=== PATIENT | female | born 1965 | race African-American/Black ===

== ENCOUNTER 2021-12-04 10:28 | Emergency (ER) | payer OTHER, SELFPAY ==
--- NOTE | ~2021-12-04 | CT_ITS ---
EXAMINATION: CT brain wo con DATE: 12/04/2021 11:00 INDICATION: Headache, dizziness, nausea. Hypertension. TECHNIQUE: Computed tomography (CT) of the head was performed without intravenous contrast. The mA wa s adjusted according to patient size. Iterative reconstruction technique was employed. Exam dose: 68 1.00 mGy-cm total exam DLP. COMPARISON: None FINDINGS: No intracranial mass lesion or hemorrhage or cerebrovascular accident is detected. No midli ne shift or mass effect. Normal ventricular size. Bilateral carotid siphon internal carotid artery calcifications. There is nonspecific diminished atte nuation of the cerebral white matter, likely due to chronic small vessel ischemic changes. No subdural or epidural hematoma is detected. No skull fracture or bone destruction. Included paranasal sinuses and the mastoid air cells are normally developed and aerated. IMPRESSION: Cerebral atherosclerosis and chronic small vessel ischemic changes of the cerebral white matter No acute intracranial finding Reviewed, dictated and finalized at [facility]. Reviewed, dictated and finalized at [facility].
[2021-12-04 10:35] VITALS: BP 169/105; PULSE 79; RESP 12; O2SAT 98
--- NOTE | 2021-12-04 10:46 | ECG_ITS ---
Measurements Intervals [place] Rate: 78 P: 36 [place]: 159 QRS: 23 QRSD: 96 T: 7 QT: 354 QTc: 403 Interpretive Statements SINUS RHYTHM CONSIDER INFERIOR INFARCT, AGE INDETERMINATE ABNORMAL ECG Electronically Signed On 12-04-2021 10:48:33 CDT by Prem Carreno D.O.
--- NOTE | 2021-12-04 10:48 | ED.HA ---
HPI - Headache General Chief Complaint: Recheck/Abnormal Lab/Rx Stated Complaint: high blood pressure with headache x days Time Seen by Provider: 12/04/21 10:34 History of Present Illness HPI Narrative: Pt presents with elevated BP and HATHAWAY. 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 Nurse checked BP and it was 210/120 so she sent her to ER. Pt says her BP has been running high and it doesn't seem like her metoprolol is working. Pt takes 50 mg and today took 100mg. Related Data Home Medications Medication Instructions Recorded Confirmed Elestrin 12/04/21 12/04/21 linoleic acid, conjugated 12/04/21 12/04/21 metoprolol tartrate 50 mg tablet 50 mg 1XD 12/04/21 12/04/21 Allergies Allergy/AdvReac Type Severity Reaction Status Date / Time Sulfa (Sulfonamide Allergy Difficulty Verified 12/04/21 10:40 Antibiotics) Breathing Review of Systems Review of Systems: All systems reviewed & are unremarkable except as noted in HPI and below Exam Const: General: healthy appearing Nutritional Appearance: well nourished Orientation/consciousness: patient oriented x3 Limitations: no limitations HENMT: Head: normal to inspection Eyes: Conjunctivae: conjunctivae normal Pupils: Equal, round and reactive pupils present EOM: EOMs intact bilaterally Neck: Neck: normal visual inspection, no lymphadenopathy and no meningeal signs Chest: Chest palpation & inspection: normal inspection of the chest Resp: Effort & Inspection: normal respiratory effort Auscultation: clear to auscultation bilaterally Cardio: Rate: regular rate GI: GI Palp: Yes Soft to palpation Auscultation: normal bowel sounds Skin: General skin exam: normal color Rashes: no rashes Neuro: General: patient oriented x3, moves all extremities and no meningeal signs Cranial nerves: Yes Nystagmus not present Speech: normal speech Extrem: General: normal to inspection and no clubbing, cyanosis or edema Psych: Mental Status: mental status grossly normal Affect: normal affect Attitude: cooperative Course Vital Signs Vital signs: Vital Signs Pulse Rate 79 12/04/21 10:35 Respiratory Rate 12 12/04/21 10:35 Blood Pressure 169/105 H 12/04/21 10:35 Pulse Oximetry 98 12/04/21 10:35 Oxygen Delivery Room Air 12/04/21 10:35 Pulse Rate 69 12/04/21 11:50 Respiratory Rate 16 12/04/21 11:50 Blood Pressure 144/86 H 12/04/21 11:50 Pulse Oximetry 100 12/04/21 11:50 Oxygen Delivery Room Air 12/04/21 10:35 MDM - Headache Lab Data Result diagrams: 12/04/21 10:50 12/04/21 10:50 Labs: Lab Results 12/04/21 12/04/21 Range/Units 10:50 10:50 WBC 6.4 (4.5-10.0) K/mm3 RBC 4.74 (4.2-5.4) M/mm3 Hgb 13.2 (12.0-15.0) g/dL Hct 41.9 (37.0-47.0) % MCV 88.4 (80-100) fl MCH 27.8 (26-34) pg MCHC 31.5 L (32-36) g/dl RDW 12.9 (11.5-14.5) % Plt Count 224 (150-375) k/mm3 MPV 11.6 H (7.4-10.4) fl Immature Gran % (Auto) 0.3 (0-0.5) % Neut % (Auto) 61.6 (45.5-73.1) % Lymph % (Auto) 26.8 (18.3-44.2) % [place] % (Auto) 9.4 H (2.6-8.5) % Eos % (Auto) 1.1 (0-4.4) % Baso % (Auto) 0.8 (0.2-1.2) % Lymph # (Auto) 1.70 (0.9-3.2) K/mm3 [place] # (Auto) 0.6 (0.1-0.6) K/mm3 Eos # (Auto) 0.1 (0-0.3) K/mm3 Baso # (Auto) 0.1 (0.0-0.1) K/mm3 Abs Immat Gran (auto) 0.02 (0.00-0.031) K/mm3 Absolute Neuts (auto) 3.9 (1.3-6.7) K/mm3 Absolute Nucleated RBC 0.0 (0.0-0.012) K/mm3 Nucleated RBC % 0.0 (0.0-0.2) % Sodium 141 (137-145) mmol/L Potassium 4.2 (3.4-5.0) mmol/L Chloride 104 (98-107) mmol/L Carbon Dioxide 29 (22-30) mmol/L Anion Gap 8 (8-16) mmol/L BUN 10 (7-17) mg/dL Creatinine 0.70 (0.7-1.0) mg/dL Estim Creat Clear Calc 87 ml/min Estimated GFR > 60 (59 - ) Glucose 101 (65-110) mg/dL Calcium 9.0 (8.4-10.2) mg/dL Total Bilirubin 0.6 (0.2-1.3) mg/dL AST 19 (14-36) U/L ALT
[2021-12-04] MEDS: cloNIDine HCL 0.1 MG TABLET PO (10:53)
[2021-12-04 11:06] LABS: Alanine Aminotransferase 6 U/L (6-35); Albumin Level 4.7 g/dL (3.5-5.1); Alkaline Phosphatase 95 U/L (38-126); Anion Gap 8 mmol/L (8-16); Aspartate Amino Transferase 19 U/L (14-36); Basophils Absolute Auto 0.1 K/mm3 (0.0-0.1); Basophils Percent Auto 0.8 % (0.2-1.2); Bilirubin,Total 0.6 mg/dL (0.2-1.3); Blood Urea Nitrogen 10 mg/dL (7-17); Carbon Dioxide 29 mmol/L (22-30); Chloride 104 mmol/L (98-107); Eosinophils Absolute Auto 0.1 K/mm3 (0-0.3); Eosinophils Percent Auto 1.1 % (0-4.4); Estimated CRCL calculation 87 ml/min; Estimated Glomerular Filt Rate > 60; Glucose 101 mg/dL (65-110); Hematocrit 41.9 % (37.0-47.0); Hemoglobin 13.2 g/dL (12.0-15.0); Immature Granulocyte Absolute 0.02 K/mm3 (0.00-0.031); Immature Granulocyte Percent A 0.3 % (0-0.5); Lymphocytes Percent Auto 26.8 % (18.3-44.2); Mean Corpuscular HGB Conc 31.5 g/dl (32-36); Mean Corpuscular Hemoglobin 27.8 pg (26-34); Mean Corpuscular Volume 88.4 fl (80-100); Mean Platelet Volume 11.6 fl (7.4-10.4); Monocytes Absolute Auto 0.6 K/mm3 (0.1-0.6); Monocytes Percent Auto 9.4 % (2.6-8.5); Neutrophils Absolute Auto 3.9 K/mm3 (1.3-6.7); Neutrophils Percent Auto 61.6 % (45.5-73.1); Platelet Count Result 224 k/mm3 (150-375); Potassium 4.2 mmol/L (3.4-5.0); Red Blood Count 4.74 M/mm3 (4.2-5.4); Red Cell Distribution Width 12.9 % (11.5-14.5); Sodium 141 mmol/L (137-145); White Blood Count 6.4 K/mm3 (4.5-10.0)
[2021-12-04 11:18] LABS: Troponin I < 0.012 ng/mL (0.000-0.034)
[2021-12-04 11:50] VITALS: BP 144/86; PULSE 69; RESP 16; O2SAT 100
== END 2021-12-04 12:09 | disposition home or self-care (01) ==
PROVIDERS: Emergency Provider Emergency Medicine
DX: I10 Essential (primary) hypertension (principal); R94.31 Abnormal electrocardiogram [ECG] [EKG]
CPT/HCPCS: 36415; 70450; 80053; 84484; 85025; 93005; 99284; A9270

== ENCOUNTER 2021-12-10 09:57 | Emergency (ER) | payer OTHER, SELFPAY ==
--- NOTE | ~2021-12-10 | XR_ITS ---
EXAMINATION: XR chest 2V DATE: 12/10/2021 10:40 INDICATION: Chest pain. Left chest cramping. TECHNIQUE: Frontal and lateral views of the chest were obtained. COMPARISON: None. FINDINGS: The chest demonstrates clear lungs without pneumonia, pleural effusion, or pneumothorax. Th e heart size is normal. IMPRESSION: 1. No acute cardiopulmonary disease. Reviewed, dictated and finalized at [facility].
[2021-12-10 09:59] VITALS: BP 144/99; PULSE 85; RESP 14; TEMP 36.6; O2SAT 100
--- NOTE | 2021-12-10 10:07 | ECG_ITS ---
Measurements Intervals [place] Rate: 77 P: 7 [place]: 149 QRS: 30 QRSD: 100 T: 76 QT: 356 QTc: 404 Interpretive Statements SINUS RHYTHM NONSPECIFIC T-WAVE ABNORMALITY Electronically Signed On 12-10-2021 11:45:34 CDT by Malachi Mcknight M.D.
[2021-12-10 10:21] LABS: Basophils Percent Auto 0.6 % (0.2-1.2); Eosinophils Absolute Auto 0.1 K/mm3 (0-0.3); Eosinophils Percent Auto 0.9 % (0-4.4); Hematocrit 43.9 % (37.0-47.0); Hemoglobin 14.7 g/dL (12.0-15.0); Immature Granulocyte Absolute 0.01 K/mm3 (0.00-0.031); Immature Granulocyte Percent A 0.2 % (0-0.5); Lymphocytes Absolute Auto 1.85 K/mm3 (0.9-3.2); Mean Corpuscular HGB Conc 33.5 g/dl (32-36); Mean Corpuscular Hemoglobin 28.3 pg (26-34); Mean Corpuscular Volume 84.6 fl (80-100); Mean Platelet Volume 11.8 fl (7.4-10.4); Monocytes Absolute Auto 0.9 K/mm3 (0.1-0.6); Monocytes Percent Auto 13.6 % (2.6-8.5); Neutrophils Absolute Auto 3.6 K/mm3 (1.3-6.7); Neutrophils Percent Auto 55.7 % (45.5-73.1); Platelet Count Result 250 k/mm3 (150-375); Red Blood Count 5.19 M/mm3 (4.2-5.4); Red Cell Distribution Width 12.6 % (11.5-14.5); White Blood Count 6.4 K/mm3 (4.5-10.0)
[2021-12-10 10:36] LABS: Prothrombin Time 12.9 Seconds (11.1-14.7)
[2021-12-10 10:37] LABS: Partial Thromboplastin Time 30.7 SECONDS (22.3-36.8)
[2021-12-10 10:38] VITALS: PULSE 80; RESP 20; O2SAT 99
[2021-12-10 10:45] VITALS: PULSE 76; O2SAT 98
[2021-12-10 11:00] LABS: Troponin I < 0.012 ng/mL (0.000-0.034)
--- NOTE | 2021-12-10 11:00 | ED.RECABL ---
HPI - Recheck/Abnormal Lab/Rx General Chief Complaint: Recheck/Abnormal Lab/Rx Stated Complaint: recheck Time Seen by Provider: 12/10/21 10:44 Source: patient Mode of arrival: ambulatory Limitations: no limitations History of Present Illness HPI narrative: 56 years old -[place] female presents with intermittent muscle spasm all over her body since Thursday which is 6 days ago. After started on hydrochlorothiazide for hypertension. Patient came to our emergency room 6 days ago, with hypertension, metoprolol increased to 50 twice daily and added hydrochlorothiazide. Patient report had similar symptoms of muscular spasm after started lisinopril in the past. Currently asymptomatic and is hungry Related Data Home Medications Medication Instructions Recorded Confirmed Elestrin 12/04/21 12/04/21 linoleic acid, conjugated 12/04/21 12/04/21 metoprolol tartrate 50 mg tablet 50 mg 1XD 12/04/21 12/04/21 Allergies Allergy/AdvReac Type Severity Reaction Status Date / Time Sulfa (Sulfonamide Allergy Difficulty Verified 12/10/21 10:11 Antibiotics) Breathing Review of Systems Review of Systems: All systems reviewed & are unremarkable except as noted in HPI and below Exam Narrative: General appearance: Well-developed, well-nourished Skin: Normal color Head: Normocephalic, nontraumatic Eyes: Clear conjunctiva ENT: Oropharynx normal, ears normal, nose normal Neck: Supple, nontender Chest and respiratory: Airway patent, no respiratory distress, no accessory muscle use Heart: Regular rate/rhythm Abdomen: Soft, nontender, no organomegaly, quiet bowel sounds Vascular: Normal peripheral pulses, normal capillary refill. Musculoskeletal: Normal range of motion, nontender back Neurologic: Alert and oriented ?3, SKEIN DRIER is normal as tested, no gross motor deficit Course Course Emergency Course: Hydrochlorothiazide reaction is my concern. Work-up today did not show any significant abnormality to explain patient condition Vital Signs Vital signs: Vital Signs Temperature 36.6 C 12/10/21 09:59 Pulse Rate 85 12/10/21 09:59 Respiratory Rate 14 12/10/21 09:59 Blood Pressure 144/99 H 12/10/21 09:59 Pulse Oximetry 100 12/10/21 09:59 Oxygen Delivery Room Air 12/10/21 09:59 Temperature 36.6 C 12/10/21 09:59 Pulse Rate 85 12/10/21 09:59 Respiratory Rate 14 12/10/21 09:59 Blood Pressure 144/99 H 12/10/21 09:59 Pulse Oximetry 100 12/10/21 09:59 Oxygen Delivery Room Air 12/10/21 09:59 MDM - Recheck/Abnormal Lab/Rx Lab Data Result diagrams: 12/10/21 10:10 12/10/21 10:10 Labs: Lab Results 12/10/21 12/10/21 12/10/21 Range/Units 10:10 10:10 10:10 WBC 6.4 (4.5-10.0) K/mm3 RBC 5.19 (4.2-5.4) M/mm3 Hgb 14.7 (12.0-15.0) g/dL Hct 43.9 (37.0-47.0) % MCV 84.6 (80-100) fl MCH 28.3 (26-34) pg MCHC 33.5 (32-36) g/dl RDW 12.6 (11.5-14.5) % Plt Count 250 (150-375) k/mm3 MPV 11.8 H (7.4-10.4) fl Immature Gran % (Auto) 0.2 (0-0.5) % Neut % (Auto) 55.7 (45.5-73.1) % Lymph % (Auto) 29.0 (18.3-44.2) % [place] % (Auto) 13.6 H (2.6-8.5) % Eos % (Auto) 0.9 (0-4.4) % Baso % (Auto) 0.6 (0.2-1.2) % Lymph # (Auto) 1.85 (0.9-3.2) K/mm3 [place] # (Auto) 0.9 H (0.1-0.6) K/mm3 Eos # (Auto) 0.1 (0-0.3) K/mm3 Baso # (Auto) 0.0 (0.0-0.1) K/mm3 Abs Immat Gran (auto) 0.01 (0.00-0.031) K/mm3 Absolute Neuts (auto) 3.6 (1.3-6.7) K/mm3 Absolute Nucleated RBC 0.0 (0.0-0.012) K/mm3 Nucleated RBC % 0.0 (0.0-0.2) % PT 12.9 (11.1-14.7) Seconds INR 1.0 APTT 30.7 (22.3-36.8) SECONDS
[2021-12-10 11:01] VITALS: BP 150/88; PULSE 72; RESP 18; O2SAT 100
[2021-12-10 11:05] LABS: Alanine Aminotransferase 13 U/L (6-35); Alkaline Phosphatase 98 U/L (38-126); Anion Gap 14 mmol/L (8-16); Aspartate Amino Transferase 33 U/L (14-36); Bilirubin,Total 0.8 mg/dL (0.2-1.3); Blood Urea Nitrogen 22 mg/dL (7-17); Calcium 9.5 mg/dL (8.4-10.2); Carbon Dioxide 24 mmol/L (22-30); Chloride 100 mmol/L (98-107); Estimated Glomerular Filt Rate 56; Glucose 113 mg/dL (65-110); Lipase 107 U/L (23-300); Potassium 4.5 mmol/L (3.4-5.0); Sodium 138 mmol/L (137-145)
== END 2021-12-10 11:25 | disposition home or self-care (01) ==
PROVIDERS: Emergency Provider Emergency Medicine
DX: M62.838 Other muscle spasm (principal); T50.2X5A Adverse effect of carbonic-anhydrase inhibitors, benzothiadiazides and other diuretics, initial encounter; I10 Essential (primary) hypertension
CPT/HCPCS: 36415; 71046; 80053; 83690; 84484; 85025; 85610; 85730; 93005; 99284